=== PATIENT | female | born 1995 | race African-American/Black ===

== ENCOUNTER 2018-11-04 22:26 | Emergency (ER) | payer BC | END 2018-11-05 02:30 | disposition home or self-care (01) | LOC: JER 11-05 02:30 ==

== ENCOUNTER 2022-04-12 21:57 | Emergency (ER) | payer BC, OTHER ==
[2022-04-12 22:04] VITALS: BP 132/82; PULSE 93; RESP 18; TEMP 98; BMI 45.6
[2022-04-12] MEDS ORDERED: ALBUTEROL SO4 2.5/IPRATROPIUM 0.5 INH SOL 3 ML VIAL.NEB. NEB ONE (23:00)
[2022-04-13 00:11] LABS: BASO % 0.6 % (0-2.0); HEMATOCRIT 29.9 % (32.4-45.2); HEMOGLOBIN 9.7 GM/dL (10.7-15.3); LYMPH % 28.6 % (8-40); MCH 21.7 pg (25.7-33.7); MCHC 32.6 g/dl (32.0-36.0); MEAN CELL VOLUME 66.6 fl (80-96); MEAN PLT VOLUME 7.5 fl (7.5-11.1); MONO % 8.2 % (3.8-10.2); NEUT % 55.6 % (42.8-82.8); PLATELET COUNT 240 10^3/uL (134-434); RBC 4.49 M/mm3 (3.60-5.2); RDW 17.4 % (11.6-15.6); WHITE BLOOD COUNT 6.2 K/mm3 (4.0-10.0)
[2022-04-13] MEDS ORDERED: ALBUTEROL SO4 2.5/IPRATROPIUM 0.5 INH SOL 3 ML VIAL.NEB. NEB ONE ×3 (00:27→02:49)
[2022-04-13 00:28] LABS: CALCIUM 8.5 mg/dL (8.5-10.1)
[2022-04-13 00:29] LABS: BLOOD UREA NITROGEN 13.3 mg/dL (7-18)
[2022-04-13 00:32] LABS: CREATININE 0.7 mg/dL (0.55-1.3)
[2022-04-13 00:33] LABS: BILIRUBIN,TOTAL 0.1 mg/dL (0.2-1); TOT PROT 6.7 g/dl (6.4-8.2)
[2022-04-13] MEDS ORDERED: predniSONE 20 MG TABLET (UD) ONE (02:49)
[2022-04-13] MEDS ORDERED: predniSONE 10 MG TABLET (UD) ONE (02:49)
[2022-04-13] MEDS ORDERED: predniSONE 20 MG TABLET (UD) PO SCH ×2 (02:49→10:00)
[2022-04-13 03:24] LABS: ANISOCYTOSIS 1+; MACROCYTOSIS 0; OVALOCYTE 2+
== END 2022-04-13 03:31 | disposition home or self-care (01) ==
LOC: JER 21:57
PROC: 3E0F7GC Introduction of Other Therapeutic Substance into Respiratory Tract, Via Natural or Artificial Opening (ICD-10-PCS; principal; 2022-04-12)
DX: R06.02 Shortness of breath (principal)
CPT/HCPCS: 0241U-QW; 36415; 71046-TC-FY; 80053; 84703; 85025; 93005; 93010; 99285-25